=== PATIENT | female | born 1995 | race Caucasian/White ===

== ENCOUNTER 2017-11-20 17:41 | Emergency (ER) | payer BC, SELFPAY ==
[2017-11-20 17:41] VITALS: BP 143/92; PULSE 78; RESP 22; TEMP 36.4; O2SAT 98; BMI 44.9
--- NOTE | 2017-11-20 18:02 | RAD_ITS ---
STUDY: X-RAY CHEST REASON FOR EXAM: Female, 22 years old. Cough. TECHNIQUE: PA and lateral views of the chest. COMPARISON: None. FINDINGS: The lungs are clear and expanded. There is no demonstrated pleural abnormality. Normal size heart. Normal mediastinum and melissa. Normal visualized pulmonary arteries. Normal visualized aortic arch and descending thoracic aorta. Normal visualized thoracic spine. Normal visualized ribs, clavicles, and shoulders. There is no demonstrated abnormality of the visualized soft tissue structures of the upper abdomen. RAD/Chest PA and Lateral IMPRESSION: No acute cardiopulmonary process. Electronically Signed: Dianne Lindquist MD at 18:26 EDT Tel , Service support ,
--- NOTE | 2017-11-20 18:07 | ED.DCSUM_ITS ---
- ER Visit Summary Date of Service: 11/20/17 Chief Complaint: Sick History of Present Illness: The patient is a 22 F who has been sick for 3 weeks. Symptoms came on gradually. She has nausea, vomiting, diarrhea. She also has upper respiratory infection symptoms. She reports a cough that is increasingly productive of sputum. Symptoms are worse with breathing. No chest pain. No history of heart disease, DVT, or PE. No recent antibiotic use. No history of lung disease. She is a smoker. Physical Examination: Vital signs unremarkable. Afebrile. Alert and oriented. No acute distress. Breathing comfortably. Lungs slightly diminished throughout but otherwise clear. Heart regular rate and rhythm. Skin normal in color. Calf soft and supple. Test Results: Chest x-ray pending. Emergency Department Course and Treatment: Patient treated with DuoNeb and Zofran while awaiting results. X-rays negative. PERC negative. Nothing to suggest ACS or dissection. No other testing indicated. This is likely infectious. Given the duration, we will treat with azithromycin. She may also use inhalers and [id number] remedies for symptoms. Follow-up with primary care. Treatment Plan: As above Disposition: Discharged Impression: 1. Acute bronchitis This note was generated with [employer] dictation software. It may contain incorrect words, spelling, and punctuation that were not noted in review of the chart prior to signing ED Disposition - Plan for ED Patient: Disposition: Home or Assisted Living Chief Complaint: Shortness of Breath Instructions: ED Upper Resp Infec Abx Tx Prescriptions: Albuterol IH (ProAir) [Proair Hfa] 1 - 2 puff INHALATION Q4H PRN PRN #1 inhaler PRN Reason: Cough Azithromycin [Zithromax Z-Jeison] 250 mg PO UD #1 box Referrals: [facility] Doctor,Out of [Primary Care Provider] -
[2017-11-20] MEDS: Ondansetron ODT 4 MG Tablet PO (18:08)
[2017-11-20 18:23] VITALS: PULSE 79; RESP 14
[2017-11-20] MEDS: Ipratropium/Albuterol Sulfate 3 ML AMPUL.NEB INHALATION (18:23)
--- NOTE | 2017-11-20 18:41 | DCINST.ED_ITS ---
ED Disposition - Plan for ED Patient: Chief Complaint: Shortness of Breath Instructions: ED Upper Resp Infec Abx Tx Prescriptions: Albuterol IH (ProAir) [Proair Hfa] 1 - 2 puff INHALATION Q4H PRN PRN #1 inhaler PRN Reason: Cough Azithromycin [Zithromax Z-Jeison] 250 mg PO UD #1 box Referrals: [facility] Doctor,Out of [Primary Care Provider] -
--- NOTE | 2017-11-21 10:35 | CM.ED ---
ED Callback: Follow-up call placed to patient. Patient states she is feeling better today. She has filled her prescriptions and started them. She states she does have a PCP, but has not had time to call the office yet. She states she plans to do so. Patient denies any needs or questions at this time.
== END 2017-11-20 18:57 | disposition home or self-care (01) ==
LOC: ED 18:52
PROVIDERS: Emergency Provider Emergency Medicine
DX: J20.9 Acute bronchitis, unspecified (principal); R11.2 Nausea with vomiting, unspecified; R19.7 Diarrhea, unspecified; F32.9 Major depressive disorder, single episode, unspecified; F17.200 Nicotine dependence, unspecified, uncomplicated; Z79.899 Other long term (current) drug therapy
CPT/HCPCS: 71046; 94640; 99283